=== PATIENT | female | born 1955 | race Caucasian/White ===

== ENCOUNTER 2017-01-10 11:51 | Emergency (ER) | payer BC | END 2017-01-10 14:07 | disposition home or self-care (01) | LOC: ER 11:51 | PROC: 0HQKXZZ Repair Right Lower Leg Skin, External Approach (ICD-10-PCS; principal; 2017-01-10) | DX: S91.011A Laceration without foreign body, right ankle, initial encounter (principal); F17.200 Nicotine dependence, unspecified, uncomplicated; X58.XXXA Exposure to other specified factors, initial encounter | CPT/HCPCS: 90471; 90714; 99283 ==